=== PATIENT | male | born 1980 | race Hispanic/Latino ===

== ENCOUNTER 2024-05-30 14:44 | Emergency (ER) | payer BC ==
[~2024-05-30] VITALS: Ht 177.8 cm; Wt 81.6 kg
[2024-05-30 14:50] VITALS: BP 145/62; PULSE 78; RESP 18; TEMP 98.5; O2SAT 98
[2024-05-30] MEDS: LIDOCAINE HCL 1% 20 ML VIAL INJ SCH (15:00)
[2024-05-30] MEDS: ketOROlac 30MG VIAL (30MG/ML) IM ONE (15:05)
[2024-05-30] MEDS: cefTRIAXone 1G VIAL IM ONE (15:05)
--- NOTE | 2024-05-30 15:38 | NUR ---
WOUND CLEANED WITH CHG AND WOUND CLEANSER. WRAPPED WITH 4X4 AND KERLEX.
--- NOTE | 2024-05-30 16:02 | NUR ---
PATIENT ELOPED AT THIS TIME. PATIENT SEARCHED FOR IN ER, PARKING LOT, AND RESTROOM. NO IV IN PLACE. ER PROVIDER MADE AWARE.
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
--- NOTE | 2024-05-30 16:22 | HMCIMG ---
Exam Type: KNEE 3VWS LT Clinical Information: FOREIGN BODY Comparison: None Findings: The bone examination is unremarkable. No fractures or dislocations are seen. No radiopaque foreign bodies are noted. Soft tissues are preserved. IMPRESSION: Normal examination.
== END 2024-05-30 16:16 | disposition left against medical advice (07) ==
LOC: EDH 14:44
DX: S81.032A Puncture wound without foreign body, left knee, initial encounter (principal); Z90.89 Acquired absence of other organs; Y23.0XXA Shotgun discharge, undetermined intent, initial encounter; Y93.89 Activity, other specified; Y92.89 Other specified places as the place of occurrence of the external cause; Y99.8 Other external cause status
CPT/HCPCS: 99284; 73562; 96372 ×2; J1885; J0696